=== PATIENT | male | born 1950 | race Caucasian/White ===

== ENCOUNTER 2019-03-29 05:55 | Day surgery (SDC) | payer MEDICARE ==
[~2019-03-29 05:55] MED LIST: Dextrose 5%-0.45% NaCl 1,000 ML IV SCH; Sodium Chloride 0.9% 10 ML Syringe FLUSH PRN
[2019-03-29] MEDS ORDERED: Midazolam 1 MG/ML 2 ML SDV IV ONE ×3 (05:56→07:05)
[2019-03-29] MEDS ORDERED: fentaNYL 100 MCG/2 ML SDV IV ONE ×3 (05:56→07:04)
[2019-03-29] MEDS ORDERED: fentaNYL 100 MCG/2 ML SDV ONE (06:14)
[2019-03-29] MEDS ORDERED: Midazolam 1 MG/ML 2 ML SDV ONE (06:14)
--- NOTE | 2019-03-29 07:42 | OR ---
DATE: 03/29/2019 PROCEDURES: Esophagoscopy, NBI, multiple pinch biopsies, and brush biopsy. INSTRUMENT USED: GIF-HQ190 Olympus video panendoscope. PREMEDICATIONS: No oral or topical anesthesia used. Fentanyl 100 mcg intravenous, Versed 2 mg intravenous, nasal O2 cannula. The procedure was done under pulse oximetry, BP recording, and photographic intelligence officer. INDICATION: The patient with progressive solid dysphagia and weight loss. Esophagoscopy was done for detection of any active erosive lesions, malignancy also under consideration, endoscopic hemostasis therapy if needed. The scope was passed with ease. Adequate visualization of the esophagus was made from proximal to distal areas. No upper esophageal lesions identified. There was distal esophageal stricture that prevented further advancement of the instrument to visualize the gastric mucosa. Malignant constricting circumferential folds were noted in the distal esophagus, NBI views were obtained, photographs were taken. Numerous pinch biopsies were taken from the folds and sent for histopathology. [place] biopsy was also taken and sent for cytology. No bleeding was noted from any of the visualized areas at the completion of examination. IMPRESSION: Distal esophageal stricture. Distal esophageal malignancy. The patient tolerated the procedure well. [facility] /[id number]
== END 2019-03-29 09:24 | disposition home or self-care (01) ==
LOC: DL.ENDO 05:55
PROVIDERS: ATTEND Internal Medicine Gastroenterology
DX: C15.5 Malignant neoplasm of lower third of esophagus (principal); K22.2 Esophageal obstruction; I10 Essential (primary) hypertension; I48.91 Unspecified atrial fibrillation; M19.90 Unspecified osteoarthritis, unspecified site; E66.09 Other obesity due to excess calories; Z68.32 Body mass index [BMI] 32.0-32.9, adult; Z87.891 Personal history of nicotine dependence
CPT/HCPCS: 43202; 43239; 88305; 88342; J2250; J3010; J7042